=== PATIENT | male | born 1955 | race Caucasian/White ===

== ENCOUNTER → 2017-11-29 | Outpatient (CLI) | payer MEDICARE ==
[~2017-11-29] MED LIST: ASPIRIN E.C. 8181 MG PO; COMBIRESP IH; FLEXERIL 1010 MG/TAB PO; GAS RELIEF125 MG PO; GLUCOPHAGE1000 MG PO; HUMALOG100 U/ML SC; IMODIUM 2MG CAPS2 MG PO; INVANZ INJ1 G/VIAL IV; LASIX 20MG TABL20 MG PO; LIPITOR 40MG TA40 MG PO; LOPRESSOR 550 MG/TAB PO; MEVACOR10 MG PO; MOBIC 7.5MG7.5 MG PO; NORCO 325 MG-51 TAB PO; PLAVIX 75MG TAB75 MG PO; PRILOSEC 20MG20 MG PO; PROAIR HFA0.09 MG/AC IH; RESTORIL 1515 MG/CAP PO; TOUJEO300 U/ML SQ; ZEBETA10 MG PO; ZESTRIL 5MG5 MG PO; ZYRTEC 10MG10 MG PO
== END ==
LOC: ZCOL.LAB 14:11
DX: E11.621 Type 2 diabetes mellitus with foot ulcer (principal); E11.9 Type 2 diabetes mellitus without complications; I87.2 Venous insufficiency (chronic) (peripheral)